=== PATIENT | female | born 1980 | race Caucasian/White ===

== ENCOUNTER 2017-12-16 19:26 | Emergency (ER) | payer MEDICAID ==
--- NOTE | 2017-12-16 20:29 | ED Physician Chart ---
ED Chief Complaint/HPI - Patient Information Date Seen:: 12/16/17 Time Seen:: 20:29 Chief Complaint:: Left ear pain History of Present Illness:: 37 yo female had b/l ear pressure, left ear pain, nasal congestion for 3 days. She had symptoms of fatigue, body ache for 1 month. was prescribed albuterol, prednisone, and rabitussin. She felt chills, no fever. She felt nausea, no vomiting. Denied diarrhea. Allergies:: Allergies Allergy/AdvReac Type Severity Reaction Status Date / Time No Known Allergies Allergy Verified 12/16/17 20:03 Vitals:: Vital Signs - 8 hr 12/16/17 19:40 Temp 98.2 F HR 87 RR 18 BP 122/75 O2 Sat % 96 ED Review of Systems - Review of Systems General/Constitutional: No fever, Chills Skin: No skin lesions Head: Headache Eyes: No pain ENT: Earache Neck: No neck pain Cardio Vascular: No chest pain Pulmonary: No SOB GI: No nausea, No vomiting Neurological: No focal symptoms ED Past Medical History - Past Medical History Past Medical History: No significant medical hx Social History: Non Smoker, Alcohol, Illicit Drug Use (marijuana) Surgical History: other (ovarian cyst removed) Family Medical History - Family Member Mother History Unknown: Yes ED Physical Exam - Physical Examination General/Constitutional: Awake Head: Atraumatic Eyes: PERRL Skin: No ecchymosis Other ENMT comments:: B/L TM erythema Respiratory: No Wheeze/Rhonchi/Rales Cardio Vascular: RRR, No murmur, gallop, rubs, NL S1 S2 GI: No tenderness/rebounding/guarding Extremities: normal strength in all extremities Neuro/Psych: No focal deficits ED Assessment - Assessment General Assessment: Otitis media Hypokalemia Dehydration Assessment/Comments:: CBC, CMP, UA Augmentin 875/125mg po x 1 KCl 20mEq Tylenol NS 1L IV bolus D/c home Augmenin 875/125mg bid x 7 days F/u PCP or return to ER if symptoms worsen ED Septic Shock - . Is Septic Shock (SBP<90, OR Lactate>4 mmol\L) present?: No - <6hrs of presentation: Vital Signs: Vital Signs - 8 hr 12/16/17 19:40 Temp 98.2 F HR 87 RR 18 BP 122/75 O2 Sat % 96 ED Reassessment (Disposition) - Reassessment Reassessment Condition:: Improved - Patient Disposition Discharge/Transfer:: Home ED Discharge Plan - Patient Disposition Admit/Discharge/Transfer: PT DISCHARGED HOME Condition at Disposition: Stable Prescriptions: Amoxicillin/Clavulanat [Augmentin 875-125mg] 1 tab PO BID #14 tab Instructions: Otitis Media, Adult, Oped-nt-Back Additional Instructions: MAKE A FOLLOW UP WITH PRIMARY MEDICAL DOCTOR IN 1-2 DAYS, COMPLY WITH PRESCRIBED MEDICATION, GO BACK TO EMERGENCY ROOM IF SYMPTOMS WORSEN.
[2017-12-16 20:43] LABS: URINE MICROSCOPIC INDICATED? YES; URINE SOURCE RANDOM
[2017-12-16 20:43] LABS: % BASOPHILS 1.4 % (0.0-2.0); % EOSINOPHILS 3.4 % (0.0-5.0); % LYMPHOCYTES 41.7 % (20.0-50.0); % MONOCYTES 5.1 % (2.0-10.0); % NEUTROPHILS 48.4 % (40.0-80.0); BASOPHILE ABSOLUTE 0.1 Th/cumm (0-0.2); EOSINOPHILE ABSOLUTE 0.3 Th/cmm (0.1-0.4); HEMATOCRIT 39.4 % (41.0-60); HEMOGLOBIN 13.3 gm/dL (12-16); LYMPHOCYTE ABSOLUTE 3.7 Th/cmm (1.5-3.0); MEAN CELL VOLUME 90.8 fl (81-100); MEAN CORPUSCULAR HEMOGLOBIN 30.7 pg (27.0-31.0); MEAN CORPUSCULAR HGB CONC 33.7 pg (28.0-36.0); MEAN PLATELET VOLUME 7.8 fl; MONOCYTE ABSOLUTE 0.4 Th/cmm (0.3-1.0); NEUTROPHILE ABSOLUTE 4.3 Th/cmm (1.8-8.0); PLATELET COUNT 402 Th/cmm (150-400); RED BLOOD COUNT 4.33 Mil/cmm (3.80-5.10); RED CELL DISTRIBUTION WIDTH 13.1 % (11.5-20.0); WHITE BLOOD COUNT 8.8 Th/cmm (4.8-10.8)
[2017-12-16 20:45] LABS: URINE BILIRUBIN NEGATIVE (NEGATIVE); URINE BLOOD TRACE (NEGATIVE); URINE GLUCOSE (UA) NEGATIVE (NEGATIVE); URINE KETONE NEGATIVE (NEGATIVE); URINE LEUKOCYTE ESTERASE NEGATIVE (NEGATIVE); URINE NITRATE NEGATIVE (NEGATIVE); URINE PH 5.5 (4.6 - 8.0); URINE PROTEIN NEGATIVE (NEGATIVE); URINE UROBILINOGEN 0.2 E.U./dL (0.2 - 1.0)
[2017-12-16 20:52] LABS: URINE CLARITY CLEAR (CLEAR); URINE COLOR YELLOW
[2017-12-16 20:54] LABS: URINE BACTERIA NONE SEEN /hpf (NONE SEEN); URINE EPITHELIAL CELLS NONE SEEN /lpf (FEW); URINE WBC NONE SEEN /hpf (0-5)
[2017-12-16 20:59] LABS: ALB/GLOB RATIO 1.8 (1.0-1.8); ALBUMIN 4.2 gm/dL (3.7-5.3); ALKALINE PHOSPHATASE 61 U/L (34-104); ANION GAP 11.1 (7.0-16.0); BILIRUBIN,TOTAL 0.4 mg/dL (0.3-1.0); BUN - UREA NITROGEN 20 mg/dL (7-25); CALCIUM SERUM 8.6 mg/dL (8.6-10.3); CARBON DIOXIDE 26.3 mEq/L (21.0-31.0); CHLORIDE 105 mEq/L (98-107); CREATININE - SERUM 1.1 mg/dL (0.6-1.2); GFR AFRICAN-AMERICAN > 60.0 ml/min (>90); GFR NON AFRICAN-AMERICAN 59.1 ml/min; GLUCOSE 146 mg/dL (70-105); POTASSIUM SERUM 3.4 mEq/L (3.5-5.1); SGOT 13 U/L (13-39); SGPT/ALT 19 U/L (7-52); SODIUM SERUM 139 mEq/L (136-145); TOTAL PROTEIN,SERUM 6.5 gm/dL (6.0-8.3)
[2017-12-16] MEDS ORDERED: Sodium Chloride 0.9% 1,000 ML IV ONE (21:22)
[2017-12-16] MEDS ORDERED: Potassium Chloride 20 mEq ER Tab PO ONE ×2 (21:22→21:32)
[2017-12-16] MEDS ORDERED: Amoxicillin/Clavulanat 875/125 Tab ONE (22:40)
[2017-12-16] MEDS ORDERED: Amoxicillin/Clavulanat 875/125 Tab PO ONE (22:43)
[2017-12-17] MEDS ORDERED: Amoxicillin/Clavulanat 875/125 Tab PO SCH (09:00)
[2017-12-17] MEDS ORDERED: Amoxicillin/Clavulanat 875/125 Tab PO ONE (22:41)
== END 2017-12-16 23:00 | disposition home or self-care (01) ==
LOC: ER 19:26
DX: H92.02 Otalgia, left ear (principal)
CPT/HCPCS: 36415-UA; 80053-TC; 81001-TC; 85025-TC; J7030; Z7502; Z7610

== ENCOUNTER 2018-12-04 14:50 | Emergency (ER) | payer MEDICAID ==
[2018-12-04 15:45] LABS: INF A SCREEN NEG FOR INF A; INF B SCREEN NEG FOR INF B
--- NOTE | 2018-12-18 18:24 | ER Physician Documentation ---
DATE OF SERVICE: 12/04/2018 CHIEF COMPLAINT: Cough. HISTORY OF PRESENT ILLNESS: The patient complains of a productive cough. She admits to nasal discharge. REVIEW OF SYSTEMS: The patient denies any history of fevers, chills, nausea, vomiting, diarrhea or constipation. PAST MEDICAL HISTORY: Unremarkable. PHYSICAL EXAMINATION: VITAL SIGNS: Reveal temperature 99 with a pulse rate of 111, blood pressure 133/93, respiratory rate is 17, and sats are 97% on room air. GENERAL: The patient is a well-developed, well-nourished, well hydrated female in no apparent distress. LUNGS: Clear to auscultation bilaterally. COR: Regular rate and rhythm. HEENT: Oropharynx within normal limits. Nasal discharge which is clear is present within the nasal canals bilaterally. No lymphadenopathy present. Nontender sinuses. NEUROLOGIC: Within normal limits. ASSESSMENT/PLAN: Bronchitis with negative influenza test. The patient was discharged home with a prescription for doxycycline 100 mg 1 p.o. b.i.d. and instruction sheet on bronchitis. She was given a work note as well. JOB# [id number] KOBY
== END 2018-12-04 16:30 | disposition home or self-care (01) ==
LOC: ER 14:50
DX: J40 Bronchitis, not specified as acute or chronic (principal)
CPT/HCPCS: 99283; 96372; 87804 ×2; J0696; J2060; Z7502